=== PATIENT | male | born 1980 ===

== ENCOUNTER 2018-03-04 09:13 | Emergency (ER) | payer OTHER ==
--- NOTE | 2018-03-04 09:46 | C.PDOC ---
History Of Present Illness 37 y/o male with history of Gastritis presents complaining of left sided abdominal pain for the past 2-3 weeks. He states that the pain is worsening since this week and is constant. He states the pain is worse with walking and urination but denies dysuria. He admits to ETOH use but denies use for 1 month. He denies use of any meds. He denies recent illness and travel. He denies any sick contacts. He denies N/V/D, chest pain, headache, back pain, fever, and chills. Last BM was yesterday. Time Seen by Provider: 03/04/18 09:25 Chief Complaint (Nursing): Abdominal Pain Past Medical History Reviewed: Historical Data, Nursing Documentation, Vital Signs Vital Signs: Last Vital Signs Temp 97.5 F L 03/04/18 09:17 Pulse 67 03/04/18 09:17 Resp 18 03/04/18 09:17 BP 127/74 03/04/18 09:17 Pulse Ox 99 03/04/18 09:17 - Medical History PMH: Denies: Chronic Kidney Disease Surgical History: No Surg Hx Family History: States: No Known Family Hx - Social History Hx Alcohol Use: Yes Hx Substance Use: No Review Of Systems Constitutional: Negative for: Fever, Chills, Weakness, Weight loss Cardiovascular: Negative for: Chest Pain Respiratory: Negative for: Cough, Shortness of Breath Gastrointestinal: Positive for: Abdominal Pain. Negative for: Nausea, Vomiting, Diarrhea, Constipation Genitourinary: Negative for: Dysuria, Frequency Musculoskeletal: Negative for: Back Pain, Leg Pain Skin: Negative for: Rash Neurological: Negative for: Headache, Dizziness Physical Exam - Physical Exam Appears: Well, Non-toxic, No Acute Distress Skin: Normal Color, Warm, Dry Head: Atraumatic, Normacephalic, Tenderness Neck: Normal ROM, Supple Lymphatic: No Adenopathy Chest: Symmetrical Cardiovascular: Rhythm Regular Respiratory: Normal Breath Sounds, No Accessory Muscle Use, No Wheezing Gastrointestinal/Abdominal: Bowel Sounds, Soft, Tenderness (LUQ), No Distention, No Guarding, No Rebound Back: Normal Inspection, No CVA Tenderness Neurological/Psych: Oriented x3, Normal Speech, Normal Cognition, Normal Sensation ED Course And Treatment - Laboratory Results Result Diagrams: 03/04/18 10:30 03/04/18 10:30 O2 Sat by Pulse Oximetry: 99 - Other Rad abdomen xray X-Ray: Viewed By Me, Read By Radiologist Interpretation: Accession No. : [id number]. Patient Name / ID : JANY OLIVER / [id number]. Exam Date : 03/04/2018 10:08:47 ( Approved ). Study Comment : Sex / Age : M / 37Y. Creator : Zion Guzman MD. Dictator : Zion Guzman MD. Elephant Keeper : Mine Manager : Zion Guzman MD. Approver2 : Report Date : 03/04/2018 12:34:10. My Comment : . Abdomen two views. HISTORY: Abdominal pain. Comparison: None available. Findings: Moderate fecal retention in the colon. No evidence of gross obstruction. Impression: Moderate fecal retention in the colon. - CT Scan/US abd/pelvis w/ po contrast Other Rad Studies (CT/US): Read By Radiologist, Radiology Report Reviewed CT/US Interpretation: Accession No. : [id number]. Patient Name / ID : JANY OLIVER / [id number]. Exam Date : 03/04/2018 13:32:36 ( Approved ). Study Comment : Sex / Age : M / 37Y. Creator : Christy Grider. Dictator : Zion Guzman MD. Elephant Keeper : Mine Manager : Zion Guzman MD. Approver2 : Report Date : 03/04/2018 13:41:43. My Comment : . CT abdomen and pelvis. HISTORY: Abdominal pain. Comparison: None available. TECHNIQUE: Multiple contiguous axial images were performed through the abdomen and pelvis without the use of intravenous contrast. Subsequently, sagittal and coronal reformatted images were obtained. This CT exam was performed using one or more of the following dose reduction techniques: Automated exposure control, adjustment of the mA and/or kV according to patient size, and/or use of iterative reconstruction technique. Findings: Lung bases are clear. No pleural or pericardial effusion. Liver and gallbladder are preserved. Spleen is preserved. Adrenal glands are preserved. Pancreas is pr eserved. Upper abdominal bowel is preserved. Right kidney: No calculi or hydronephrosis. Left Kidney: No calculi or hydronephrosis. Urinary bladder is preserved. Prostate and seminal vesicles are grossly preserved. Mild thickening of the sigmoid colon and rectum which may be secondary to an acute infectious and or inflammatory changes. Clinical correlation. Appendix is visualized and appears grossly preserved. Few shotty para-aortic and inguinal lymph nodes. Few shotty mesenteric nodes. Bridging sclerosis of the bilateral SI joints. Anterolisthesis of L5 on S1 with associated pars defects. Prominent Schmorl's node formation at the superior endplate of the L1 vertebral body. Imp ression: 1. Mild thickening of the sigmoid colon and rectum which may be secondary to an acute infectious and or inflammatory changes. Clinical correlation. 2. Anterolisthesis of L5 on S1 with associated pars defects. Additional findings as above. Progress Note: Patient assessed; Meds given- symptoms improving; labs ordered and reviewed; Xray of abdomen reveals moderate fecal retention in colon; awaiting CT imaging at 11:11am. CT abd/pelvis revealing Mild thickening of the sigmoid colon and rectum which may be secondary to an acute infectious and or inflammatory changes. Anterolisthesis of L5 on S1 with associated pars defects. 2:45pm:Patient made aware and will be discharged with GI cocktail of Fleet enema x 2; Benefiber daily x 30d; and Metamucil daily x30d. He will follow up with GI if his symptoms worsen or continue. He verbalized understanding and will be discharged. Disposition Counseled Patient/Family Regarding: Studies Performed, Diagnosis, Need For Followup - Disposition Referrals: [facility] at [facility] [Outside] Disposition: HOME/ ROUTINE Disposition Time: 14:20 Condition: IMPROVED Additional Instructions: BENITO CARMICHAEL, thank you for letting us take care of you today. Your provider was Brianna Lino MD/Eliu Monzon PA-C and you were treated for ABDOMINAL PAIN. The emergency medical care you received today was directed at your acute symptoms. If you were prescribed any medication, please fill it and take as directed. It may take several days for your symptoms to resolve. Return to the Emergency Department if your symptoms worsen, do not improve, or if you have any other problems. Please contact your doctor or call one of the physicians/clinics you have been referred to that are listed on the Patient Visit Information form that is included in your discharge packet. Bring any paperwork you were given at discharge with you along with any medications you are taking to your follow up visit. Our treatment cannot replace ongoing medical care by a primary care provider outside of the emergency department. Thank you for allowing the [facility] team to be part of your care today. Prescriptions: Polyethylene Glycol 3350 [Miralax] 17 gm PO DAILY #30 ml Sod Phos,M-B/Na Phos,Di-Ba [Fleet Enema] 133 ml RC DAILY #2 enema Wheat Dextrin [Benefiber] 1 each PO DAILY #30 powd.pack Instructions: Constipation, Adult (DC) Forms: Gen Discharge Inst Bulgarian, [employer] (Bulgarian) Print Language: LUXEMBOURGISH - Clinical Impression Clinical Impression: Abdominal pain, Abdominal discomfort, Constipation - PA / VISUAL MERCHANDISING SPECIALIST / Resident Statement MD/DO has reviewed & agrees with the documentation as recorded.
[2018-03-04] MEDS ORDERED: Sodium Chloride 0.9% 500 ML IV ONE ×2 (09:52→10:35)
[2018-03-04 10:33] LABS: BASO # 0.1 K/uL (0.0-0.2); BASO % 1.1 % (0.0-2.0); EOS # 0.1 K/uL (0.0-0.7); EOS % 2.8 % (0.0-4.0); HEMOGLOBIN 14.4 g/dL (12.0-18.0); LYMPH # 1.1 K/uL (1.0-4.3); LYMPH % 21.3 % (20.0-40.0); MEAN CELL VOLUME 92.8 fL (80.0-94.0); MEAN CORPUSCULAR HGB CONC 34.5 g/dL (33.0-37.0); MEAN PLATELET VOLUME 7.9 fL (7.2-11.7); MONO # 0.6 K/uL (0.0-0.8); MONO % 12.3 % (0.0-10.0); NEUT # 3.2 K/uL (1.8-7.0); NEUT % 62.5 % (50.0-75.0); RBC 4.5 Mil/uL (4.40-5.90); WHITE BLOOD COUNT 5.1 K/uL (4.8-10.8)
[2018-03-04 10:52] LABS: URINE BILIRUBIN NEGATIVE (NEGATIVE); URINE BLOOD NEGATIVE (NEGATIVE); URINE CLARITY Clear (Clear); URINE COLOR Straw (YELLOW); URINE GLUCOSE (UA) NORMAL (Normal); URINE LEUKOCYTE ESTERASE NEG Leu/uL (Negative); URINE PROTEIN NEGATIVE (NEGATIVE); URINE UROBILINOGEN NORMAL mg/dL (0.2-1.0)
[2018-03-04 10:52] LABS: ALB/GLOB RATIO 1.9 (1.0-2.1); ALBUMIN 4.7 g/dL (3.5-5.0); ALT/SGPT 24 U/L (21-72); AST/SGOT 24 U/L (17-59); BLOOD UREA NITROGEN 21 mg/dL (9-20); CALCIUM 8.7 mg/dl (8.6-10.4); GFR NON-AFRICAN AMERICAN > 60; LIPASE 40 U/L (23-300)
[2018-03-04] MEDS ORDERED: Iohexol 240 (50 ml) PO ONE (11:00)
[2018-03-04] MEDS ORDERED: Iohexol 240 (50 ml) ONE (11:08)
--- NOTE | 2018-03-04 12:37 | RAD ---
Abdomen two views HISTORY: Abdominal pain. Comparison: None available. Findings: Moderate fecal retention in the colon. No evidence of gross obstruction. Impression: Moderate fecal retention in the colon.
[2018-03-04 13:53] VITALS: O2SAT 99
--- NOTE | 2018-03-04 14:03 | CT ---
CT abdomen and pelvis HISTORY: Abdominal pain. Comparison: None available. TECHNIQUE: Multiple contiguous axial images were performed through the abdomen and pelvis without the use of intravenous contrast. Subsequently, sagittal and coronal reformatted images were obtained. This CT exam was performed using one or more of the following dose reduction techniques: Automated exposure control, adjustment of the mA and/or kV according to patient size, and/or use of iterative reconstruction technique. Findings: Lung bases are clear. No pleural or pericardial effusion. Liver and gallbladder are preserved. Spleen is preserved. Adrenal glands are preserved. Pancreas is preserved. Upper abdominal bowel is preserved. Right kidney: No calculi or hydronephrosis. Left Kidney: No calculi or hydronephrosis. Urinary bladder is preserved. Prostate and seminal vesicles are grossly preserved. Mild thickening of the sigmoid colon and rectum which may be secondary to an acute infectious and or inflammatory changes. Clinical correlation. Appendix is visualized and appears grossly preserved. Few shotty para-aortic and inguinal lymph nodes. Few shotty mesenteric nodes. Bridging sclerosis of the bilateral SI joints. Anterolisthesis of L5 on S1 with associated pars defects. Prominent Schmorl's node formation at the superior endplate of the L1 vertebral body. Impression: 1. Mild thickening of the sigmoid colon and rectum which may be secondary to an acute infectious and or inflammatory changes. Clinical correlation. 2. Anterolisthesis of L5 on S1 with associated pars defects. Additional findings as above.
[2018-03-04 15:02] VITALS: BP 117/68; PULSE 56; TEMP 98
[2018-03-04 15:17] VITALS: RESP 16
== END 2018-03-04 15:16 | disposition home or self-care (01) ==
LOC: C.ER 09:13
DX: K59.00 Constipation, unspecified (principal); R10.12 Left upper quadrant pain
CPT/HCPCS: 74018; 74176; 80053; 81001; 83690; 85025; 99285; J7040; Q9966